=== PATIENT | female | born 1985 | race African-American/Black ===

== ENCOUNTER 2016-09-29 14:34 | Inpatient (IN) | payer MEDICAID ==
[~2016-09-29] VITALS: Ht 167.6 cm; Wt 113.9 kg
[2016-09-29] VITALS (16 sets, daily range): BP systolic 73–107; BP diastolic 35–56; PULSE 69–110; RESP 16–20; TEMP 97.5–97.9; O2SAT 96–99
[~2016-09-29 14:34] MED LIST: CALNTAB; PREN1MIS11 PO
--- NOTE | 2016-09-29 15:50 | PD ---
HPI Chief Complaint Contractions Date Seen: September 29, 2016 Time Seen: 15:30 Travel History International Travel<30 Days: No Contact w/Intl Traveler<30Days: No Known Affected Area: No History of Present Illness HPI Patient is a 31-year-old at 40 weeks gestation with KVNG of 09/29 based on second trimester ultrasound presenting due to contractions. She was reports that contractions started around 1 PM and have occurred about every 5 minutes. She endorses movement. She denies any leakage of fluid. She noted some vaginal spotting that started yesterday, reports blood was mixed in with mucus. care [facility] with [facility] She denies any complications with this . GBS positive. Pt desires and had a consult on 09/[address] Richter. Pt has had 3 vaginal deliveries followed by a performed due to OP presentation. Prior operative report shows that patient had a low transverse incision. Patient is a candidate for . Para: 4 : 9 History Past Medical History Medical History: Denies Significant Hx Obstetric History Obstetric History 1 due to OP presentation, per patient 3 vaginal deliveries, term, no complications 3 miscarriages 1 Past Surgical History Narrative Surgical x1 Family History Narrative Family History Mother: Diabetes, unspecified thyroid disorder Father: Healthy Social History Alcohol Use: No Tobacco Use: No Substance Abuse: Yes (marijuana use) Allergies-Medications (Allergen,Severity, Reaction): Coded Allergies: No Known Allergies (Unverified , 09/18/16) Home Meds Active Scripts W/O Vit A W/ Fe Carbo Pack (Citranatal 90 Dha Pack)90-1 & 300 Mg Pack1 Ea PO DAILY #60 BLISTER Ref 11 30 day supply. Prov:Rita Nina 07/21/16 Reported Medications Vitamin (Calna)1 Tab Tab 04/28/16 Review of Systems General / Constitutional: No: Fever, Chills Eyes: No: Visual changes HENT: No: Headaches Cardiovascular: No: Chest Pain or Discomfort Respiratory: Cough Gastrointestinal: Abdominal Pain, No: Nausea, Vomiting, Diarrhea Genitourinary: Vaginal Bleeding (spotting since yesterday), No: Dysuria Musculoskeletal: No: Edema Skin: No Rash Neurologic: No: Headache Psychiatric: No: Anxiety Physical Exam Narrative GENERAL: Well-nourished, well-developed patient. SKIN: Warm and dry. HEAD: Normocephalic and atraumatic. EYES: No scleral icterus. No injection or drainage. ENT: No nasal drainage noted. Mucous membranes pink. Airway patent. NECK: Supple, trachea midline. No JVD. CARDIOVASCULAR: Regular rate and rhythm without murmurs, gallops, or rubs. RESPIRATORY: Breath sounds equal bilaterally. No accessory muscle use. ABDOMEN/GI: Abdomen soft, non-tender, bowel sounds present, no rebound, no guarding Gravid to 40 weeks size GENITOURINARY: External Genitalia: intact and normal in appearance Cervix: Posterior Dilatation: 2-3cm Effacement: 30% Station: -3 Presentation: Vertex Membranes: Intact Uterine Contractions: Q2-5 minutes FHT's: Category: 2 Baseline: 150 Reactive: - Variability: moderate Decels: Early EXTREMITIES: No cyanosis or edema. BACK: Nontender without obvious deformity. No CVA tenderness. NEUROLOGICAL: Awake and alert. Motor and sensory grossly within normal limits. Five out of 5 muscle strength in all muscle groups. Normal speech. [facility] Medical Record Reviewed: Yes Interpretation(s) Patient is a 31-year-old at 40 weeks gestation with KVNG of 09/29 based on second trimester ultrasound presenting due to contractions. Patient desires . IUP Category 2 tracing 1L Bolus LR x1 External monitoring/toco FHT with +accelerations after IV fluid, now category 1, reassuring Will admit pt for observation Desires Prior operative report shows that patient had a low transverse incision She had a consult on 09/[address] Richter Pt is a candidate for dw Loida Shi MD R2 September 29, 2016 15:50
[2016-09-29] MEDS ORDERED: LACTATED RINGER'S 1000 ML INJ 1,000 ML IV PRN (15:55)
[2016-09-29] MEDS ORDERED: LACTATED RINGER'S 1000 ML INJ 1,000 ML IV SCH ×2 (15:55→23:12)
[2016-09-29] MEDS ORDERED: CITRIC ACID-SODIUM CITRATE LIQ 30 ML UDC PO SCH (16:00)
[2016-09-29] MEDS ORDERED: SODIUM CHLORID 0.9% 500 ML INJ 500 ML IV PRN (16:00)
[2016-09-29] MEDS ORDERED: MINERAL OIL 10 ML VIAL TOPICAL PRN (16:00)
[2016-09-29] MEDS ORDERED: LIDOCAINE HCL 1% 50 ML VIAL INFIL PRN (16:00)
[2016-09-29] MEDS ORDERED: ONDANSETRON HCL 4 MG/2 ML VIAL IV PRN (16:00)
[2016-09-29] MEDS ORDERED: OXYTOCIN 30 UNITS-500ML PREMIX 500 ML IV ONE ×2 (16:00→18:15)
[2016-09-29] MEDS ORDERED: PENICILLIN G POTASSIUM INJ 5,000,000 UNITS in SODIUM CHLORIDE 0.9% INJ 100 ML IV ONE (16:00)
[2016-09-29] MEDS ORDERED: LIDOCAINE HCL 1% 50 ML VIAL I-DERMAL PRN (16:00)
[2016-09-29] MEDS ORDERED: LACTATED RINGER'S 1000 ML INJ 1,000 ML IV ONE ×2 (16:15→18:55)
[2016-09-29] MEDS ORDERED: SODIUM CHLOR 0.9% 1000 ML INJ 1,000 ML IV PRN (16:15)
--- NOTE | 2016-09-29 16:17 | HHI.HP ---
History & Physical H&P HPI Chief Complaint Contractions Date Seen: September 29, 2016 Time Seen: 15:30 Travel History International Travel<30 Days: No Contact w/Intl Traveler<30Days: No Known Affected Area: No History of Present Illness HPI Patient is a 31-year-old at 40 weeks gestation with KVNG of 09/29 based on second trimester ultrasound presenting due to contractions. She was reports that contractions started around 1 PM and have occurred about every 5 minutes. She endorses movement. She denies any leakage of fluid. She noted some vaginal spotting that started yesterday, reports blood was mixed in with mucus. care has been with [facility]. She denies any complications with this . GBS positive. Pt desires and had a consult on 09/[address] Richter. Pt has had 3 vaginal deliveries followed by a performed due to OP presentation. Prior operative report shows that patient had a low transverse incision. Patient is a candidate for . Para: 4 : 9 History (Limited) History Past Medical History Medical History: Denies Significant Hx Obstetric History Obstetric History 1 due to OP presentation, per patient 3 vaginal deliveries, term, no complications 3 miscarriages 1 Past Surgical History Narrative Surgical x1 Family History Narrative Family History Mother: Diabetes, unspecified thyroid disorder Father: Healthy Social History Alcohol Use: No Tobacco Use: No Substance Abuse: Yes (marijuana use) Allergies-Medications Allergies-Medications (Allergen,Severity, Reaction): Coded Allergies: No Known Allergies (Unverified , 09/18/16) Home Meds Active Scripts W/O Vit A W/ Fe Carbo Pack (Citranatal 90 Dha Pack)90-1 & 300 Mg Pack1 Ea PO DAILY #60 BLISTER Ref 11 30 day supply. Prov:Rita Nina 07/21/16 Reported Medications Vitamin (Calna)1 Tab Tab 04/28/16 ROS Review of Systems General / Constitutional: No: Fever, Chills Eyes: No: Visual changes HENT: No: Headaches Cardiovascular: No: Chest Pain or Discomfort Respiratory: Cough Gastrointestinal: Abdominal Pain, No: Nausea, Vomiting, Diarrhea Genitourinary: Vaginal Bleeding (spotting since yesterday), No: Dysuria Musculoskeletal: No: Edema Skin: No Rash Neurologic: No: Headache Psychiatric: No: Anxiety Physical Exam Physical Exam Narrative GENERAL: Well-nourished, well-developed patient. SKIN: Warm and dry. HEAD: Normocephalic and atraumatic. EYES: No scleral icterus. No injection or drainage. ENT: No nasal drainage noted. Mucous membranes pink. Airway patent. NECK: Supple, trachea midline. No JVD. CARDIOVASCULAR: Regular rate and rhythm without murmurs, gallops, or rubs. RESPIRATORY: Breath sounds equal bilaterally. No accessory muscle use. ABDOMEN/GI: Abdomen soft, non-tender, bowel sounds present, no rebound, no guarding Gravid to 40 weeks size GENITOURINARY: External Genitalia: intact and normal in appearance Cervix: Posterior Dilatation: 2-3cm Effacement: 30% Station: -3 Presentation: Vertex Membranes: Intact Uterine Contractions: Q2-5 minutes FHT's: Category: 2 Baseline: 150 Reactive: - Variability: moderate Decels: Early EXTREMITIES: No cyanosis or edema. BACK: Nontender without obvious deformity. No CVA tenderness. NEUROLOGICAL: Awake and alert. Motor and sensory grossly within normal limits. Five out of 5 muscle strength in all muscle groups. Normal speech. Data Data [facility] Medical Record Reviewed: Yes Interpretation(s) Patient is a 31-year-old at 40 weeks gestation with KVNG of 09/29 based on second trimester ultrasound presenting due to contractions. Patient desires . IUP Category 2 tracing 1L Bolus LR x1 External monitoring/toco FHT with +accelerations after IV fluid, now category 1, reassuring Will admit pt for observation Desires Prior operative report shows that patient had a low transverse incision She had a consult on 09/[address] Richter Pt is a candidate for dw Loida Shi MD R2 September 29, 2016 16:17
[2016-09-29 16:20] LABS: AUTOMATED NEUTROPHIL # 8.1 TH/MM3 (1.8-7.7); BASOPHIL % 0.3 % (0.0-2.0); EOSINOPHIL % 0.4 % (0.0-4.0); HEMATOCRIT 40.2 % (35.0-46.0); HEMO FLAGS DIFF FINAL; LYMPH % 13.9 % (9.0-44.0); LYMPHOCYTE # 1.5 TH/MM3 (1.0-4.8); MEAN CELL VOLUME 88.8 FL (80.0-100.0); MEAN CORPUSCULAR HEMOGLOBIN 29.4 PG (27.0-34.0); MEAN CORPUSCULAR HGB CONC 33.1 % (32.0-36.0); MONO % 7.6 % (0.0-8.0); NEUT % 77.8 % (16.0-70.0); PLATELET COUNT 235 TH/MM3 (150-450); RED BLOOD COUNT 4.52 MIL/MM3 (4.00-5.30); RED CELL DISTRIBUTION WIDTH 13.6 % (11.6-17.2); WHITE BLOOD COUNT 10.4 TH/MM3 (4.0-11.0)
[2016-09-29] MEDS ORDERED: TERBUTALINE INJ 1 MG/ML AMP ONE (16:21)
[2016-09-29 16:26] LABS: BACTERIA, URINE FEW /hpf; BLOOD, URINE SMALL (NEG); COMMENT (UR) CULTURE INDICATED; CULTURE IF INDICATED CULTURE INDICATED; GLUCOSE,URINE NEG (NEG); KETONE, URINE TRACE mg/dL (NEG); MUCUS URINE FEW /lpf (OCC); NITRITE,URINE NEG (NEG); SQUAMOUS EPITHELIAL CELL URINE 10 /hpf (0-5); URINE COLOR YELLOW (YELLW/STRAW)
[2016-09-29] MEDS ORDERED: TERBUTALINE INJ 1 MG/ML AMP SQ ONE (16:30)
[2016-09-29] MEDS ORDERED: OXYTOCIN 10 UNIT/ML AMP ONE (16:56)
[2016-09-29] MEDS ORDERED: ceFAZolin INJ 1,000 MG VIAL ONE (16:56)
[2016-09-29 17:53] LABS: AMPHETAMINE, URINE NEG (NEG); BARBITURATES, URINE NEG (NEG); COCAINE, URINE NEG (NEG)
[2016-09-29] MEDS ORDERED: ZOLPIDEM TARTRATE 5 MG TAB PO PRN (18:15)
[2016-09-29] MEDS ORDERED: SIMETHICONE 80 MG CHEWABLE TAB PO PRN (18:15)
[2016-09-29] MEDS ORDERED: SODIUM CHLORIDE 0.9% FLUSH 10 ML FLUSH IV FLUSH PRN (18:15)
[2016-09-29] MEDS ORDERED: ACETAMINOPHEN 325 MG TAB PO PRN (18:15)
[2016-09-29] MEDS ORDERED: ONDANSETRON HCL 4 MG/2 ML VIAL IV PUSH PRN (18:15)
[2016-09-29] MEDS ORDERED: KETOROLAC TROMETHAMINE 60 MG/2 ML (IM) VIAL IM PRN (18:15)
[2016-09-29] MEDS ORDERED: MORPHINE SULFATE PF 5 MG/10 ML VIAL ONE (18:19)
[2016-09-29] MEDS ORDERED: fentaNYL CITRATE 250 MCG/5 ML AMP ONE (18:19)
[2016-09-29] MEDS ORDERED: ACETAMINOPHEN 1000 MG/100 ML VIAL IV ONE (18:29)
[2016-09-29] MEDS ORDERED: DEXAMETHASONE SOD PHOS 4 MG/ML VIAL IV ONE (18:55)
[2016-09-29] MEDS ORDERED: PHENYLEPHRINE HCL 10 MG/ML VIAL IV ONE (18:55)
[2016-09-29] MEDS ORDERED: OXYTOCIN 30 UNITS-500ML PREMIX 500 ML ONE (19:24)
[2016-09-29] MEDS ORDERED: KETOROLAC TROMETHAMINE 60 MG/2 ML (IM) VIAL IM ONE (19:25)
[2016-09-29] MEDS ORDERED: PENICILLIN G POTASSIUM INJ 2,500,000 UNITS in SODIUM CHLORIDE 0.9% INJ 100 ML IV SCH (20:00)
[2016-09-30] VITALS (7 sets, daily range): BP systolic 87–123; BP diastolic 54–64; PULSE 77–120; RESP 14–18; TEMP 97.8–99.3; O2SAT 99
[2016-09-30 03:40] LABS: AUTOMATED NEUTROPHIL # 19.4 TH/MM3 (1.8-7.7); BASOPHIL # 0.1 TH/MM3 (0-0.2); BASOPHIL % 0.3 % (0.0-2.0); EOSINOPHIL % 0.2 % (0.0-4.0); HEMATOCRIT 34.3 % (35.0-46.0); HEMO FLAGS DIFF FINAL; LYMPH % 1.7 % (9.0-44.0); LYMPHOCYTE # 0.3 TH/MM3 (1.0-4.8); MEAN CELL VOLUME 87.6 FL (80.0-100.0); MEAN CORPUSCULAR HEMOGLOBIN 30.2 PG (27.0-34.0); MEAN CORPUSCULAR HGB CONC 34.4 % (32.0-36.0); NEUT % 94.8 % (16.0-70.0); PLATELET COUNT 209 TH/MM3 (150-450); RED BLOOD COUNT 3.92 MIL/MM3 (4.00-5.30); RED CELL DISTRIBUTION WIDTH 13.3 % (11.6-17.2); WHITE BLOOD COUNT 20.4 TH/MM3 (4.0-11.0)
[2016-09-30] MEDS ORDERED: OXYTOCIN 30 UNITS-500ML PREMIX 500 ML IV PRN (04:15)
[2016-09-30] MEDS: IBUPROFEN 600 MG TAB PO PRN ×3 (05:20→18:00)
[2016-09-30] MEDS: oxyCODONE/ACETAMINOPHEN 5 MG/325 MG TAB PO PRN ×4 (05:20→21:49)
--- NOTE | 2016-09-30 08:29 | HHI.OB ---
Subjective Post Operative Day: 1 Remarks POD 1 AF VSS doing well , ambulating , tolerating diet but is nauseous today bandage dry BS decreased , pain normal for postop Imp -stable Plan- continue progressive postop care Objective Vitals/I&O Vital Signs Date Time Temp Pulse Resp B/P Pulse Ox O2 Delivery O2 Flow Rate FiO2 09/30/16 05:25 98.7 86 18 107/64 09/30/16 03:35 99 09/30/16 01:25 77 14 100/59 09/30/16 01:25 98.3 09/29/16 21:35 97.9 69 16 09/29/16 21:35 99/55 09/29/16 20:29 107/56 09/29/16 20:16 84 20 97 09/29/16 20:15 106/55 09/29/16 20:10 96 09/29/16 20:09 20 09/29/16 20:05 84 97/56 09/29/16 20:05 97.6 09/29/16 19:55 85 20 97 09/29/16 19:45 87/44 09/29/16 19:35 86 20 99 09/29/16 19:34 88/53 09/29/16 19:25 91 20 83/46 97 09/29/16 19:10 91 20 82/45 97 09/29/16 18:55 110 84/37 96 09/29/16 18:55 100 20 09/29/16 18:38 20 97 09/29/16 18:38 108 86/43 09/29/16 18:23 97 73/35 09/29/16 18:23 97.5 18 96 Result Diagram: 09/30/16 0322 Objective Remarks GENERAL: Well-nourished, well-developed patient. CARDIOVASCULAR: Regular rate and rhythm without murmurs, gallops, or rubs. RESPIRATORY: Breath sounds equal bilaterally. No accessory muscle use. ABDOMEN/GI: Abdomen soft, non-tender, bowel sounds present. Incision: Clean, dry and intact. Fundus: Firm, non-tender at umbilicus. GENITOURINARY: Light to moderate bleeding. EXTREMITIES: No cyanosis or edema, non-tender, without signs of DVT. Medications and IVs Current Medications Medications (Trade) Dose Ordered Sig/Celina Route Start Time Stop Time Status Last Admin (Lr 1000 ml Inj) 1,000 ml @ 100 mls/hr Q10H IV 09/29/16 23:12 09/30/16 19:11 09/29/16 23:12 (NS Flush) 2 ml BID IV FLUSH 09/29/16 21:00 (NS Flush) 2 ml UNSCH PRN IV FLUSH 09/29/16 18:15 (Mylicon Chew) 80 mg QID PRN PO 09/29/16 18:15 09/30/16 05:20 (Tylenol) 650 mg Q6H PRN PO 09/29/16 18:15 (Motrin) 600 mg Q6H PRN PO 09/29/16 18:15 09/30/16 05:20 (Percocet 5-325 Mg) 1 tab Q4H PRN PO 09/29/16 18:15 Oxycodone/ Acetaminophen 2 tab 2 tab Q4H PRN PO 09/29/16 18:15 09/30/16 05:20 (Ancef Inj/NS Inj) 100 ml @ 200 mls/hr Q8H IV 09/30/16 01:00 09/30/16 09:29 09/30/16 01:27 (Nichole-Colace) 2 tab Q12H PRN PO 09/29/16 18:15 (Ambien) 5 mg HS PRN PO 09/29/16 18:15 (M-M-R Ii Inj) 0.5 ml ONCE ONCE SQ 09/30/16 16:00 09/30/16 16:01 (Boostrix Inj) 0.5 ml ONCE ONCE IM 09/30/16 16:00 09/30/16 16:01 (Zofran Inj) 4 mg Q6H PRN IV PUSH 09/29/16 18:15 Sky Henson II, MD September 30, 2016 08:29
[2016-09-30] MEDS ORDERED: SODIUM CHLORID 0.9% 500 ML INJ 500 ML IV ONE (09:00)
[2016-09-30] MEDS: SODIUM CHLORIDE 0.9% FLUSH 10 ML FLUSH IV FLUSH SCH (09:00)
[2016-09-30] MEDS ORDERED: diphenhydrAMINE HCL 50 MG CAP PO ONE (09:00)
[2016-09-30] MEDS ORDERED: LACTATED RINGER'S 1000 ML INJ 500 ML IV ONE (09:45)
[2016-09-30] MEDS: DOCUSATE SODIUM 50 MG/SENNA 8.6 MG TAB PO PRN (11:36)
[2016-09-30] MEDS ORDERED: DIPHTH/TETANUS/ACEL PERTUSSIS (BOOSTER) 0.5 ML VIAL/PFS IM ONE (16:00)
[2016-09-30] MEDS ORDERED: MEASLES, MUMPS, RUBELLA VACCINE 0.5 ML VIAL SQ ONE (16:00)
[2016-09-30] MEDS ORDERED: diphenhydrAMINE HCL 50 MG CAP PO PRN (17:00)
--- NOTE | 2016-09-30 19:22 | MP ---
cc: LEIDA HENSON MD DATE OF SURGERY: 09/29/2016 PREOPERATIVE DIAGNOSIS: Term intrauterine , previous for with nonreassuring heart rate tracing. POSTOPERATIVE DIAGNOSIS: Term intrauterine , previous for with nonreassuring heart rate tracing. OPERATION: Repeat low transverse section. SURGEON: Leida Henson MD. ANESTHESIA: Spinal. PREOP NOTE: The patient is a 31 year-old black female, , previous x1, who initially presented in early labor. She was wanting a with this . Soon after admission, sporadic, fairly large bradycardiac episodes were noted. It did return to baseline with good variability. However, they persistently occurred, approximately every 15 to 30 minutes. The patient's cervix was 2 to 3 cm, thick and high. The patient was in very early labor and the baby was not tolerating the process. Repeat section was needed due to the heart rate tracing. PROCEDURE: The patient was taken to the operating room and placed in supine position on the operating table. After adequate spinal anesthesia was administered she was prepped and draped for abdominal surgery. A Pfannenstiel incision was made in the lower abdomen and carried through to the fascia sharply, the fascia dissected off the rectus muscle and the rectus split in the midline. The peritoneal cavity was entered sharply. The incision was extended superiorly and inferiorly. A bladder blade was placed in the lower edge of the incision. A transverse hysterotomy was made, extended bluntly bilaterally. Clear fluid noted with rupture of the membranes. A male fetus was delivered at 5:36 p.m. Weight 3300 grams. 8 and 9. No complications. There was a nuchal cord noted and the cord was very thin, thinner than a normal term cord, also it was a short cord. No other abnormalities noted. The baby handed to the awaiting nursery staff. The placenta manually extracted. We tried to get a cord gas but that was unsuccessful. Cord blood was sent. The uterus was cleaned of all remnants and membranes. The hysterotomy closed with a running layer of 0 chromic followed by imbricating suture of same. Hemostasis was achieved. Several stick ties. The uterus was replaced in the peritoneal cavity. The ovaries and tubes were within normal limits. Gutters visualized and cleaned of any blood. The rectus muscle reapproximated with stick ties of Vicryl. The fascia closed in running layers of Vicryl. Subcutaneous tissue reapproximated with 0 plain gut suture and the skin closed with subcuticular stitch. Pressure dressing applied. ESTIMATED BLOOD LOSS: 500 cc. COMPLICATIONS: None. Sponge and needle counts were correct x2. The patient went to Recovery in stable condition. MD LUIS Hodges/LILIA /8:36 AM /6:28 PM
[2016-10-01] VITALS: BP 107/65; PULSE 96; RESP 16; TEMP 98.4
[2016-10-01] MEDS: IBUPROFEN 600 MG TAB PO PRN ×4 (01:45→23:14)
[2016-10-01] MEDS: oxyCODONE/ACETAMINOPHEN 5 MG/325 MG TAB PO PRN ×6 (01:47→23:14)
[2016-10-01 04:10] VITALS: BP 92/64; PULSE 85; RESP 22; TEMP 97.9
--- NOTE | 2016-10-01 08:15 | HHI.OB ---
Subjective Post Operative Day: 2 Remarks Patient is a 31-year-old delivered at 40 weeks and 0 days. Patient is postop day 2 after . Pt had some tachycardia and low blood pressures overnight, but is otherwise AF with VSS. Patient's pain is well-controlled. Patient reports eating and drinking without any nausea or vomiting. Patient reports minimal bleeding. Patient has passed gas but no bowel movements. Patient is walking without lower extremity pain or shortness of breath. Patient reports desire for contraception with IUD and Depo-Provera in the interim and bottle-feeding. Objective Vitals/I&O Vital Signs Date Time Temp Pulse Resp B/P Pulse Ox O2 Delivery O2 Flow Rate FiO2 10/01/16 04:10 97.9 10/01/16 04:10 85 92/64 10/01/16 04:10 22 10/01/16 00:00 98.4 16 10/01/16 00:00 96 107/65 09/30/16 20:00 99.3 120 14 09/30/16 20:00 123/61 09/30/16 15:30 98.3 87 16 93/56 09/30/16 11:37 97.8 86 18 115/54 09/30/16 08:45 91 16 87/64 09/30/16 08:45 99.0 Result Diagram: 09/30/16 0322 Objective Remarks GENERAL: Well-nourished, well-developed patient. CARDIOVASCULAR: Regular rate and rhythm without murmurs, gallops, or rubs. RESPIRATORY: Breath sounds equal bilaterally. No accessory muscle use. ABDOMEN/GI: Abdomen soft, non-tender, bowel sounds present. Incision: Clean, dry and intact. Fundus: Firm, non-tender at umbilicus. GENITOURINARY: Light to moderate bleeding. EXTREMITIES: No cyanosis or edema, non-tender, without signs of DVT. Medications and IVs Current Medications Medications (Trade) Dose Ordered Sig/Celina Route Start Time Stop Time Status Last Admin (NS Flush) 2 ml BID IV FLUSH 09/29/16 21:00 (NS Flush) 2 ml UNSCH PRN IV FLUSH 09/29/16 18:15 (Mylicon Chew) 80 mg QID PRN PO 09/29/16 18:15 09/30/16 05:20 (Tylenol) 650 mg Q6H PRN PO 09/29/16 18:15 (Motrin) 600 mg Q6H PRN PO 09/29/16 18:15 10/01/16 01:45 (Percocet 5-325 Mg) 1 tab Q4H PRN PO 09/29/16 18:15 09/30/16 18:00 (Percocet 5-325 Mg) 2 tab Q4H PRN PO 09/29/16 18:15 10/01/16 05:31 (Nichole-Colace) 2 tab Q12H PRN PO 09/29/16 18:15 09/30/16 11:36 (Ambien) 5 mg HS PRN PO 09/29/16 18:15 (Zofran Inj) 4 mg Q6H PRN IV PUSH 09/29/16 18:15 (Benadryl) 50 mg Q8H PRN PO 09/30/16 17:00 Assessment/Plan Problem List: (1) S/P Assessment and Plan Patient is a 31-year-old delivered at 40 weeks and 0 days. Patient is postop day 2 after . Pt had some tachycardia and low blood pressures overnight, but is otherwise AF with VSS. Patient was counseled to do 6 weeks of pelvic rest. Patient was counseled to follow up in one week for incision check and again in 6 weeks. Patient will follow-up and requested contraception. --AF VSS --Continue routine care --Motrin and Percocet when necessary for pain --Encourage OOB --Pelvic rest for 6 weeks will need follow-up appointment at that time. --Contraception: Patient plans to get IUD through her primary care provider. She is requesting a Depo shot in the interim. --Anticipate discharge tomorrow Discharge Planning Anticipate discharge tomorrow. Solis Miranda MD R1 October 01, 2016 08:14
[2016-10-01] MEDS ORDERED: medroxyPROGESTERone ACETATE SUSP 150 MG/ML SYRINGE IM ONE ×2 (08:30→22:00)
[2016-10-01 08:45] VITALS: BP 105/65; PULSE 86; RESP 18; TEMP 97.7; O2SAT 97
[2016-10-01] MEDS: DOCUSATE SODIUM 50 MG/SENNA 8.6 MG TAB PO PRN ×2 (10:37→23:14)
[2016-10-01 20:01] VITALS: BP 107/73; PULSE 95; RESP 17; TEMP 98.4
[2016-10-02] MEDS: IBUPROFEN 600 MG TAB PO PRN (05:28)
[2016-10-02] MEDS: oxyCODONE/ACETAMINOPHEN 5 MG/325 MG TAB PO PRN (05:28)
[2016-10-02] MEDS ORDERED: OXYC1TAB63 PO (07:48)
[2016-10-02] MEDS ORDERED: ACET1TAB86 PO (07:49)
[2016-10-02] MEDS ORDERED: IBUP-232 PO (07:49)
--- NOTE | 2016-10-02 07:50 | HHI.DCPOC ---
Discharge Care Plan Diagnosis: (1) S/P Report Symptoms to Your Doctor -Temperature above 100.5 degrees -Redness, of incision or excessive or foul smelling drainage -Unusual pain or calf pain -Increased vaginal bleeding -Painful or difficulty urinating -Feelings of extreme sadness or anxiety after 2 weeks Goals to Promote Your Health * To prevent worsening of your condition and complications, please follow up with your doctor in 1 week and again in 6 weeks. * To maintain your health at the optimal level, please hydrate well, eat a balanced diet, and exercise. Directions to Meet Your Goals Take your medications as prescribed Follow your dietary instruction Follow activity as directed Ensure plenty of rest for recovery Drink fluids for hydration Keep your appointments as scheduled Take your immunizations and boosters as scheduled If your symptoms worsen call your PCP, if no PCP go to Urgent Care Center or Emergency Room Smoking is Dangerous to Your Health. Avoid second hand smoke Call the 24-hour crisis hotline for domestic abuse at Solis Miranda MD R1 Oct 02, 2016 07:50
--- NOTE | 2016-10-02 08:09 | HHI.OB ---
Subjective Post Operative Day: 3 Remarks Postop day 3 afebrile vital signs stable Patient doing well having some soreness around her incision but otherwise doing well. Tolerating diet, ambulating to the bathroom, and she is going to the nursery to see the baby on a regular basis. Exam--incision is clean and dry and intact , bowel sounds are normal Impression-postop repeat doing well on day 3 and wanting to be discharged Plan to discharge today follow up with Naz Nina [facility] Objective Vitals/I&O Vital Signs Date Time Temp Pulse Resp B/P Pulse Ox O2 Delivery O2 Flow Rate FiO2 10/01/16 20:01 98.4 95 17 107/73 10/01/16 08:45 97.7 86 18 105/65 97 Result Diagram: 09/30/16 0322 Objective Remarks GENERAL: Well-nourished, well-developed patient. CARDIOVASCULAR: Regular rate and rhythm without murmurs, gallops, or rubs. RESPIRATORY: Breath sounds equal bilaterally. No accessory muscle use. ABDOMEN/GI: Abdomen soft, non-tender, bowel sounds present. Incision: Clean, dry and intact. Fundus: Firm, non-tender at umbilicus. GENITOURINARY: Light to moderate bleeding. EXTREMITIES: No cyanosis or edema, non-tender, without signs of DVT. Medications and IVs Current Medications Medications (Trade) Dose Ordered Sig/Celina Route Start Time Stop Time Status Last Admin (NS Flush) 2 ml BID IV FLUSH 09/29/16 21:00 (NS Flush) 2 ml UNSCH PRN IV FLUSH 09/29/16 18:15 (Mylicon Chew) 80 mg QID PRN PO 09/29/16 18:15 09/30/16 05:20 (Tylenol) 650 mg Q6H PRN PO 09/29/16 18:15 (Motrin) 600 mg Q6H PRN PO 09/29/16 18:15 10/02/16 05:28 (Percocet 5-325 Mg) 1 tab Q4H PRN PO 09/29/16 18:15 10/02/16 05:28 (Percocet 5-325 Mg) 2 tab Q4H PRN PO 09/29/16 18:15 10/01/16 23:14 (Nichole-Colace) 2 tab Q12H PRN PO 09/29/16 18:15 10/01/16 23:14 (Ambien) 5 mg HS PRN PO 09/29/16 18:15 (Zofran Inj) 4 mg Q6H PRN IV PUSH 09/29/16 18:15 (Benadryl) 50 mg Q8H PRN PO 09/30/16 17:00 Assessment/Plan Problem List: (1) S/P Assessment and Plan Patient is a 31-year-old delivered at 40 weeks and 0 days. Patient is postop day 2 after . Pt had some tachycardia and low blood pressures overnight, but is otherwise AF with VSS. Patient was counseled to do 6 weeks of pelvic rest. Patient was counseled to follow up in one week for incision check and again in 6 weeks. Patient will follow-up and requested contraception. --AF VSS --Continue routine care --Motrin and Percocet when necessary for pain --Encourage OOB --Pelvic rest for 6 weeks will need follow-up appointment at that time. --Contraception: Patient plans to get IUD through her primary care provider. She is requesting a Depo shot in the interim. --Anticipate discharge tomorrow Discharge Planning Anticipate discharge tomorrow. Sky Henson II, MD Oct 02, 2016 08:09
[2016-10-02] MEDS: SODIUM CHLORIDE 0.9% FLUSH 10 ML FLUSH IV FLUSH SCH (08:12)
[2016-10-02 08:44] VITALS: BP 111/69; PULSE 81; RESP 18; TEMP 98
[2016-10-02 16:27] LABS: BATH SALTS (MDPV) UR NEG (NEG); ECSTASY (MDMA) UR NEG (NEG); GABAPENTIN UR NEG (NEG); HEROIN (6-ACETYLMORPHINE) UR NEG (NEG); HYDROMORPHONE U NEG (NEG); K2 SPICE UR NEG (NEG); OBMETHADONE UR NEG (NEG); OXYCODONE (PERCODAN) NEG (NEG); PHENCYCLIDINE URINE NEG (NEG)
[2016-10-07] MEDS ORDERED: IBUP-232 PO (09:49)
== END 2016-10-02 10:37 | disposition home or self-care (01) | DRG 765 ==
LOC: HOBED 14:34 → H2EB 16:26 → H1EA 20:28
PROVIDERS: ADMIT Obstetrics & Gynecology Maternal & Fetal Medicine; ATTEND Obstetrics & Gynecology Maternal & Fetal Medicine
PROC: 10D00Z1 Extraction of Products of Conception, Low, Open Approach (ICD-10-PCS; principal; 2016-09-29)
DX: O69.3XX0 Labor and delivery complicated by short cord, not applicable or unspecified (principal); O99.324 Drug use complicating childbirth; O99.824 Streptococcus B carrier state complicating childbirth; F12.90 Cannabis use, unspecified, uncomplicated; O34.211 Maternal care for low transverse scar from previous cesarean delivery; O76 Abnormality in fetal heart rate and rhythm complicating labor and delivery; O69.81X0 Labor and delivery complicated by cord around neck, without compression, not applicable or unspecified; R03.1 Nonspecific low blood-pressure reading; R00.0 Tachycardia, unspecified; Z3A.40 40 weeks gestation of pregnancy; Z37.0 Single live birth
CPT/HCPCS: 80074; 80307; 81001; 85025; 86850; 86900; 86901; 87086; 88307; 90715; 99285; G0481; J0131; J0690; J1050; J1100; J1885; J2274; J2370; J2540; J2590; J3010; J3105; J7120; Q0163